=== PATIENT | female | born 1990 | race Caucasian/White ===

== ENCOUNTER 2017-08-03 08:36 | Outpatient (CLI) ==
[2016-07-22 04:14] VITALS: BMI 25.7
== END 2017-08-03 08:37 | disposition home or self-care (01) ==
LOC: CAR 08:36
PROVIDERS: ATTEND Family Medicine
DX: R00.2 Palpitations (principal)

== ENCOUNTER 2018-10-07 22:00 | Emergency (ER) | payer OTHER ==
[2018-10-07 22:16] VITALS: BMI 28.1
[2018-10-07] MEDS ORDERED: CARDIZEM INJ IVP STA ×2 (22:39→22:56)
[2018-10-07] MEDS ORDERED: SODIUM CHLORIDE 1,000 ML IV STA (22:39)
--- NOTE | 2018-10-07 22:43 | ED.PDOC ---
General ED Provider: Dr. YNES ROQUE Chief Complaint: Palpitations Stated Complaint: Patient is a 27 year old female who comes to the ER with Palpations off and on for a while which got worse today just prior to arrival. She sometimes has feeling of dizziness and anxeity. Previosuly had a workup with no findings. Renee any illicite Drug use. Time Seen by Physician: 22:41 Mode of Arrival: Walk-In Information Source: Patient Exam Limitations: No limitations Primary Care Provider: CAMILA HIGGINS Seen Within Last 72 Hours for Same Complaint By: ED Nursing and Triage Documentation Reviewed and Agree: No Does patient meet sepsis criteria?: No System Inflammatory Response Syndrome: Not Applicable Sepsis Protocol: For patient's 13 years and over: Temp is 96.8 and below OR 101 and greater Pulse >90 BPM Resp >20/minute Acutely Altered Mental Status Are patient's symptoms suggestive of a new infection, such as: -Pneumonia -Skin, Soft Tissue -Endocarditis -UTI -Bone, Joint Infection -Implantable Device -Acute Abdominal Infection -Wound Infection -Meningitis -Blood Stream Catheter Infection -Unknown Cardiovascular Complaint Exam - Palpitations Complaint/Exam Onset/Duration: months worse in the last 4 days and tonight Symptoms Are: Still present Timing: Intermittent Initial Severity: Severe Current Severity: Moderate Character: Reports: Fast, Irregular, Pounding, Skipped beats Alleviating: Reports: None Associated Signs and Symptoms: Reports: Lightheadedness, Nausea Related History: Similar episode Cardiac Risk Factors: Reports: Family history. Denies: Hypertension, Smoking, Diabetes, Elevated lipids, CHF, Prior [place], CAD Pulmonary Embolism Risk Factors: Reports: None Atrial Fibrillation Risk Factors: Reports: None Thyroid Exam: Normal Differential Diagnoses: CAD, Paroxysmal SVT Quality Indicators for AMI: EKG in 10min. Quality Indicators for Cardiac Chest Pain: EKG in 10min. Quality Indicator For Non-Traumatic Chest Pain/Syncope: EKG Performed Review of Systems - Review Of Systems Constitutional: Reports: No symptoms Eyes: Reports: No symptoms Ears, Nose, Mouth, Throat: Reports: No symptoms Respiratory: Reports: No symptoms Cardiac: Reports: Irregular heart rate, Lightheadedness, Palpitations GI: Reports: No symptoms : Reports: No symptoms Musculoskeletal: Reports: No symptoms Skin: Reports: No symptoms Neurological: Reports: No symptoms Endocrine: Reports: No symptoms Hematologic/Lymphatic: Reports: No symptoms All Other Systems: Reviewed and Negative Past Medical History - Past Medical History Endocrine: Reports: None Cardiovascular: Reports: None Respiratory: Reports: None Hematological: Reports: Anemia Gastrointestinal: Reports: GERD Genitourinary: Reports: None Neuro/Psych: Reports: Anxiety, Depression Musculoskeletal: Reports: None Cancer: Reports: Skin (melanoma left breast) Last Menstrual Period: now - Surgical History General Surgical History: Reports: Other (melanoma left breast, tissue removed in 2011) - Family History Family History: Reports: None - Social History Smoking Status: Never smoker Hx Substance Use: No Alcohol Screening: None - Immunizations Tetanus Shot up to Date: No Physical Exam - Physical Exam Appearance: Ill-appearing Eyes: NIKKI, EOMI, Conjunctiva clear ENT: Ears normal, Nose normal, Oropharynx normal Respiratory: Airway patent, Breath sounds clear, Breath sounds equal, Respirations nonlabored Cardiovascular: Tachycardia GI/: Soft Skin: Warm, Dry, Normal color Neurological: Sensation intact, Motor intact, Reflexes intact, Cranial nerves intact, Alert, Oriented Psychiatric: Anxious Interpretation - Oceanographic Meteorologist Time of Oceanographic Meteorologist Interpretation: 22:43 Rate: Tachy Rhythm: Sinus Ectopy: None (fusion complexes ) - EKG Interpretation Time of EKG #1: 22:34 Rate: Tachy Rhythm: Sinus Ectopy: PVCs (Fusion complexes ) [place]: NL ST Segment: Normal Physician Notification - Case Discussed Physician Notified: Dr West Time of Notification: 23:46 (Accepted to go to [facility]) Critical Care Note - Critical Care Note Total Time (mins): 45 Course - Course Hematology/Chemistry: 10/07/18 22:30 10/07/18 22:30 Orders, Labs, Meds: Lab Review 10/07/18 10/07/18 10/07/18 22:30 22:30 22:30 WBC 7.27 RBC 4.37 Hgb 13.1 Hct 37.8 MCV 86.5 MCH 30.0 MCHC 34.7 RDW Coeff of Martínez 11.9 Plt Count 195 Immature Gran % (Auto) 0.1 Neut % (Auto) 54.3 Lymph % (Auto) 38.9 [place] % (Auto) 5.4 Eos % (Auto) 1.0 Baso % (Auto) 0.3 Immature Gran # (Auto) 0.0 Neut # (Auto) 4.0 Lymph # (Auto) 2.8 [place] # (Auto) 0.4 Eos # (Auto) 0.1 Baso # (Auto) 0.0 Sodium 145.8 H Potassium 3.69 Chloride 105.9 Carbon Dioxide 29.2 Anion Gap 14.39 BUN 11.8 Creatinine 0.76 Estimated GFR (MDRD) 91.00 BUN/Creatinine Ratio 15.52 Glucose 88.2 Calcium 9.20 Magnesium 1.76 Total Bilirubin 0.55 AST 19.0 ALT 14.8 Alkaline Phosphatase 46.4 Total Creatine Kinase 88.9 Troponin I < 0.012 Total Protein 7.50 Albumin 4.47 Globulin 3.03 Albumin/Globulin Ratio 1.47 TSH 3.200 Free T4 1.03 Orders Category Date Time Status EKG-(ED ONLY) Stat CARDIO 10/07/18 22:20 Completed EKG-(ED ONLY) Stat CARDIO 10/07/18 22:55 Completed EKG-(ED ONLY) Stat CARDIO 10/07/18 22:55 Completed EKG-(ED ONLY) Stat CARDIO 10/07/18 22:56 Completed EKG-(ED ONLY) Stat CARDIO 10/07/18 22:57 Completed EKG-(ED ONLY) Stat CARDIO 10/07/18 22:58 Completed ED IV/MEDIPORT/POWERPORT .ONCE EMERGENCY 10/07/18 22:39 Active CBC W/ AUTO DIFF Stat LAB 10/07/18 22:30 Completed COMPREHENSIVE METABOLIC PANEL Stat LAB 10/07/18 22:30 Completed CREATINE KINASE Stat LAB 10/07/18 22:30 Completed FREE T4 (FREE THYROXINE) Stat LAB 10/07/18 22:30 Completed FREE TRIIODOTHYRONINE (T3) Stat LAB 10/07/18 22:30 Received MAGNESIUM Stat LAB 10/07/18 22:30 Completed THYROID STIMULATING HORMONE Stat LAB 10/07/18 22:30 Completed TROPONIN I Stat LAB 10/07/18 22:30 Completed URINE DRUG SCREEN (RAPID FOR ED) [DRUG SCREEN, URINE, LAB 10/07/18 22:21 Uncollected RAPID] Stat 0.9 % Sodium Chloride [Saline Flush] MEDS 10/07/18 22:39 Ordered 1 syr IVF PRN PRN 0.9 % Sodium Chloride [Sodium Chloride] 100 ml MEDS 10/07/18 23:00 Ordered Diltiazem HCl Inj [Cardizem Inj] 125 mg IV 10 mg/hr Diltiazem HCl Inj [Cardizem Inj] MEDS 10/07/18 22:56 Discontinued 15 mg IVP ONCE STA Diltiazem HCl [Cardizem Inj] MEDS 10/07/18 23:04 Discontinued 100 mg .ROUTE .STK-MED ONE Diltiazem HCl [Cardizem Inj] MEDS 10/07/18 23:05 Discontinued 25 mg .ROUTE .STK-MED ONE Sodium Chloride 0.9% [Sodium Chloride] 1,000 ml MEDS 10/07/18 22:39 Discontinued IV BOLUS Medications Generic Name Dose Route Start Last Admin Trade Name Freq PRN Reason Stop Dose Admin Diltiazem HCl 125 mg/ Sodium 125 mls @ 10 mls/hr 10/07/18 23:00 10/07/18 23: 30 Chloride IV 5 mg/hr .[id number] TORIE 5 mls/hr Administration Protocol 10 MG/HR Sodium Chloride 1 syr 10/07/18 22:39 Saline Flush IVF PRN PRN To flush IV Discontinued Medications Generic Name Dose Route Start Last Admin Trade Name Freq PRN Reason Stop Dose Admin Diltiazem HCl 15 mg 10/07/18 22:56 10/07/18 23:12 Cardizem Inj IVP 10/07/18 22:57 15 mg ONCE STA Administration Sodium Chloride 1,000 mls @ 1,000 mls/hr 10/07/18 22:39 10/07/18 23:31 Sodium Chloride IV 10/07/18 23:38 1,000 mls/hr BOLUS STA Administration Vital Signs: Temp Pulse Resp BP Pulse Ox 10/07/18 23:30 107 H 17 120/77 10/07/18 22:01 100 F H 76 20 155/89 H 99 GRIFFIN Risk Score Age >/= 65: No >/= 3 CAD Risk Factors: No Known CAD (Stenosis >/= 50%): No ASA Use in Past 7 Days: No Severe Angina (>/= 2 episodes in 24 hours): No EKG ST Changes >/= 0.5mm: No Postive Cardiac Marker: No GRIFFIN Total Score: 0 GRIFFIN Risk Score: Risk Score Odds of by 30D 0 0.1 (0.1-0.2) 1 0.3 (0.2-0.3) 2 0.4 (0.3-0.5) 3 0.7 (0.6-0.9) 4 1.2 (1.0-1.5) 5 2.2 (1.9-2.6) 6 3.0 (2.5-3.6) 7 4.8 (3.8-6.1) Departure - Departure Time of Disposition: 23:47 Disposition: HOME SELF-CARE Discharge Problem: Palpitations Arrhythmia Qualifiers: Arrhythmia type: paroxysmal tachycardia, unspecified Qualified Code(s): I47.9 - Paroxysmal tachycardia, unspecified; I47 - Paroxysmal tachycardia Condition: Stable Pt referred to PMD for follow-up: Yes IPMP verified?: No Allergies/Adverse Reactions: Allergies Iodinated Contrast- Oral and IV Dye [Iodinated Contrast Media - IV Dye] Adverse Reaction (Verified 10/07/18 22:16) Home Medications: Ambulatory Orders Sertraline HCl [Zoloft] 50 mg PO DAILY 10/07/18 Pt. Stabilized Within Hospital's Capabilities/Transferred To: [facility] Disposition Discussed With: Patient, Family
[2018-10-07] MEDS ORDERED: CARDIZEM INJ 125 MG in SODIUM CHLORIDE 100 ML IV SCH ×4 (23:00)
[2018-10-07] MEDS ORDERED: CARDIZEM INJ ONE ×2 (23:04→23:05)
[2018-10-08] MEDS ORDERED: ATIVAN PO STA (00:55)
[2018-10-08 01:05] VITALS: BP 112/74; TEMP 99.6
== END 2018-10-08 01:15 | disposition short-term general hospital (02) ==
LOC: ED 22:00
DX: I47.9 Paroxysmal tachycardia, unspecified (principal); R00.2 Palpitations
CPT/HCPCS: 36415; 80053; 80306; 82550; 83735; 84439; 84443; 84481; 84484; 85025; 93005; 93010; 96361; 96365; 96366; 96375; 99285

== ENCOUNTER 2018-10-08 01:18 | Outpatient (CLI) ==
[2018-10-07 22:16] VITALS: BMI 28.1
== END 2018-10-08 01:34 | disposition short-term general hospital (02) ==
LOC: AMBL 01:18
PROVIDERS: ATTEND Internal Medicine Geriatric Medicine
DX: R00.0 Tachycardia, unspecified (principal); R00.2 Palpitations

== ENCOUNTER 2019-01-05 04:46 | Emergency (ER) ==
[2019-01-05] MEDS ORDERED: MORPHINE 2 MG/ML SYRINGE IVP STA (04:50)
[2019-01-05] MEDS ORDERED: ZOFRAN 4 MG/2 ML IVP STA (04:50)
[2019-01-05 04:51] VITALS: BP 140/85; TEMP 98.2; BMI 29.9
[2019-01-05] MEDS ORDERED: DILAUDID 1 MG/ML SYRINGE IVP STA (04:58)
--- NOTE | 2019-01-05 05:03 | ED.PDOC ---
General Stated Complaint: 28 y old presentin in distress from severe renal stone pain.Apparently also happened in he past several times, Mode of Arrival: Walk-In Information Source: Patient Exam Limitations: No limitations Nursing and Triage Documentation Reviewed and Agree: Yes Does patient meet sepsis criteria?: No System Inflammatory Response Syndrome: Not Applicable <SANDEEP VO - Last Filed: 01/05/19 06:53> Time Seen by Physician: 07:10 <LONI TREADWELL - Last Filed: 01/05/19 07:33> ED Provider: Dr. LONI TREADWELL Chief Complaint: Kidney Stone Primary Care Provider: CAMILA HIGGINS Sepsis Protocol: For patient's 13 years and over: Temp is 96.8 and below OR 101 and greater Pulse >90 BPM Resp >20/minute Acutely Altered Mental Status Are patient's symptoms suggestive of a new infection, such as: -Pneumonia -Skin, Soft Tissue -Endocarditis -UTI -Bone, Joint Infection -Implantable Device -Acute Abdominal Infection -Wound Infection -Meningitis -Blood Stream Catheter Infection -Unknown Complaint Exam - Complaint/Exam Patient Complains of: Reports: Pain Onset/Duration: back pain in CVA areas radiating to groin Symptoms Are: Still present Timing: Constant Initial Severity: Moderate Current Severity: Severe Location of Pain: Reports: Unable to describe, Diffuse, Right, Left, Flank, Groin Character: Reports: Sharp, Colicky, Burning, Tearing Aggravating: Reports: Movement, Coughing, Urination Alleviating: Reports: Position, Medications Associated Signs and Symptoms: Reports: Diaphoresis, Back pain, Hematuria, Dysuria, Nausea, Decreased urine output, Decreased activity, Abdominal Pain Related History: Reports: Similar episode Ectopic Risk Factors: Reports: None Ovarian Torsion Risk Factors: Reports: None Surgical Obstruction Risk Factors: Reports: None Related Surgical History: Denies: None Abdominal Findings: Present: CVA Tenderness Differential Diagnoses: Appendicitis, Ovarian Cyst, Ovarian Torsion, Ectopic , Renal Colic, Ureteral Stone, Tubo-ovarian Abscess, UTI <SANDEEP VO - Last Filed: 01/05/19 06:53> Review of Systems - Review Of Systems Constitutional: Reports: No symptoms Eyes: Reports: No symptoms Ears, Nose, Mouth, Throat: Reports: No symptoms Respiratory: Reports: No symptoms Cardiac: Reports: No symptoms GI: Reports: No symptoms : Reports: Burning, Dysuria, Frequency, Flank pain, Hematuria, Pain Musculoskeletal: Reports: No symptoms, Back pain Skin: Reports: No symptoms Neurological: Reports: No symptoms Endocrine: Reports: No symptoms, Excessive sweating Hematologic/Lymphatic: Reports: No symptoms All Other Systems: Reviewed and Negative <SANDEEP VO - Last Filed: 01/05/19 06:53> Past Medical History - Past Medical History Endocrine: Reports: None Cardiovascular: Reports: None Respiratory: Reports: None Hematological: Reports: Anemia Gastrointestinal: Reports: GERD Genitourinary: Reports: None Neuro/Psych: Reports: Anxiety, Depression Musculoskeletal: Reports: None Cancer: Reports: Skin (melanoma left breast) Last Menstrual Period: 1 week - Surgical History General Surgical History: Reports: Other (melanoma left breast, tissue removed in 2011) - Family History Family History: Reports: None - Social History Smoking Status: Never smoker Hx Substance Use: No Alcohol Screening: None - Immunizations Tetanus Shot up to Date: Yes <SANDEEP VO - Last Filed: 01/05/19 06:53> Physical Exam - Physical Exam Appearance: Ill-appearing, Well-nourished Ill-appearing: Moderate Pain Distress: Moderate Eyes: NIKKI ENT: Ears normal, Nose normal, Oropharynx normal Neck: Supple Respiratory: Airway patent, Breath sounds clear, Breath sounds equal Cardiovascular: RRR, Pulses normal, Bradycardia GI/: Tender, Bowel sounds hypoactive Musculoskeletal: Normal strength, ROM intact, No edema, No calf tenderness Skin: Warm, Dry Neurological: Sensation intact, Motor intact, Reflexes intact, Alert, Oriented Psychiatric: Affect appropriate <SANDEEP VO - Last Filed: 01/05/19 06:53> Physician Notification - Case Discussed Physician Notified: Dr.Kupferer ALVA Time of Notification: 06:54 (CT Abd/pelvis pending) <SANDEEP VO - Last Filed: 01/05/19 06:53> Critical Care Note - Critical Care Note Total Time (mins): 0 <LONI TREADWELL - Last Filed: 01/05/19 07:33> Course - Course Hematology/Chemistry: 01/05/19 05:40 01/05/19 05:40 <SANDEEP VO - Last Filed: 01/05/19 06:53> - Course Hematology/Chemistry: 01/05/19 05:40 01/05/19 05:40 <LONI TREADWELL - Last Filed: 01/05/19 07:33> - Course Orders, Labs, Meds: Lab Review 01/05/19 01/05/19 01/05/19 05:40 05:40 05:40 WBC 6.63 RBC 4.26 Hgb 12.9 Hct 37.2 MCV 87.3 MCH 30.3 MCHC 34.7 RDW Coeff of Martínez 12.4 Plt Count 175 Immature Gran % (Auto) 0.3 Neut % (Auto) 70.6 Lymph % (Auto) 22.8 [place] % (Auto) 5.4 Eos % (Auto) 0.6 Baso % (Auto) 0.3 Immature Gran # (Auto) 0.0 Neut # (Auto) 4.7 Lymph # (Auto) 1.5 [place] # (Auto) 0.4 Eos # (Auto) 0.0 Baso # (Auto) 0.0 D-Dimer (Manual) 205.08 Sodium 141.8 Potassium 3.78 Chloride 106.6 Carbon Dioxide 23.9 Anion Gap 15.08 BUN 14.7 Creatinine 0.78 Estimated GFR (MDRD) 88.00 BUN/Creatinine Ratio 18.84 Glucose 115.6 H Calcium 8.99 Total Bilirubin 0.72 AST 19.5 ALT 19.2 Alkaline Phosphatase 49.9 Troponin I Total Protein 7.51 Albumin 4.80 Globulin 2.71 Albumin/Globulin Ratio 1.77 Serum , Qual 01/05/19 01/05/19 05:40 05:40 WBC RBC Hgb Hct MCV MCH MCHC RDW Coeff of Martínez Plt Count Immature Gran % (Auto) Neut % (Auto) Lymph % (Auto) [place] % (Auto) Eos % (Auto) Baso % (Auto) Immature Gran # (Auto) Neut # (Auto) Lymph # (Auto) [place] # (Auto) Eos # (Auto) Baso # (Auto) D-Dimer (Manual) Sodium Potassium Chloride Carbon Dioxide Anion Gap BUN Creatinine Estimated GFR (MDRD) BUN/Creatinine Ratio Glucose Calcium Total Bilirubin AST ALT Alkaline Phosphatase Troponin I < 0.012 Total Protein Albumin Globulin Albumin/Globulin Ratio Serum , Qual Negative Orders Category Date Time Status EKG-(ED ONLY) Stat CARDIO 05/04/19 05:11 Completed IV [ED IV/MEDIPORT/POWERPORT] .ONCE EMERGENCY 01/05/19 05:13 Active Monitor [ED COOLER OPERATOR APPLIED] .ONCE EMERGENCY 01/05/19 05:41 Active BLOOD CULTURE (ED ONLY) Stat LAB 01/05/19 06:35 Received CBC W/ AUTO DIFF Stat LAB 01/05/19 05:40 Completed COMPREHENSIVE METABOLIC PANEL Stat LAB 01/05/19 05:40 Completed D-DIMER Stat LAB 01/05/19 05:40 Completed SERUM TEST [SERUM ] Stat LAB 01/05/19 05:40 Completed TROPONIN I Stat LAB 01/05/19 05:40 Completed URINALYSIS C & S IF INDICATED Stat LAB 01/05/19 05:15 Uncollected URINALYSIS WITH MICROSCOPIC Stat LAB 01/05/19 05:21 Uncollected 0.9 % Sodium Chloride [Saline Flush] MEDS 01/05/19 05:13 Active 1 syr IVF PRN PRN Hydromorphone HCl [Dilaudid 1 mg/ml Syringe] MEDS 01/05/19 04:58 Discontinued 1 mg IVP ONCE STA Ketorolac Tromethamine [Toradol] MEDS 01/05/19 06:35 Discontinued 30 mg IVP ONCE STA Promethazine HCl [Phenergan 25 mg/ml Vial] MEDS 01/05/19 05:30 Discontinued 25 mg .ROUTE .STK-MED ONE Promethazine HCl [Phenergan 25 mg/ml Vial] 25 mg MEDS 01/05/19 05:27 Discontinued 0.9 % Sodium Chloride [Sodium Chloride] 50 ml IV ONCE Sodium Chloride 0.9% [Sodium Chloride] 1,000 ml MEDS 01/05/19 05:[address] ABD/PEL WO RENAL STONE PROT Stat RADS 01/05/19 05:21 Completed Medications Generic Name Dose Route Start Last Admin Trade Name Freq PRN Reason Stop Dose Admin Sodium Chloride 1 syr 01/05/19 05:13 Saline Flush IVF PRN PRN To flush IV Discontinued Medications Generic Name Dose Route Start Last Admin Trade Name Freq PRN Reason Stop Dose Admin Hydromorphone HCl 1 mg 01/05/19 04:58 01/05/19 05:02 Dilaudid 1 Mg/Ml Syringe IVP 01/05/19 04:59 1 mg ONCE STA Administration Sodium Chloride 1,000 mls @ 1,000 mls/hr 01/05/19 05:14 01/05/19 05:27 Sodium Chloride IV 01/05/19 06:13 1,000 mls/hr BOLUS STA Administration Promethazine HCl 25 mg/ Sodium 51 mls @ 75 mls/hr 01/05/19 05:27 01/05/19 05: 39 Chloride IV 01/05/19 06:07 75 mls/hr ONCE STA Administration Ketorolac Tromethamine 30 mg 01/05/19 06:35 01/05/19 06:48 Toradol IVP 01/05/19 06:36 30 mg ONCE STA Administration Vital Signs: Temp Pulse Resp BP Pulse Ox 01/05/19 04:47 98.2 F 63 20 140/85 100 Departure - Departure Pt referred to PMD for follow-up: Yes IPMP verified?: No Disposition Discussed With: Patient, Family <SANDEEP VO - Last Filed: 01/05/19 06:53> - Departure Time of Disposition: 07:20 <LONI TREADWELL - Last Filed: 01/05/19 07:33> - Departure Disposition: HOME SELF-CARE Discharge Problem: Renal calculi Instructions: Kidney Stones (ED) Condition: Good Additional Instructions: Renal Stones Instructions Strain all Urine Take Flomax 0.4 mg daily until stone passes Force Fluids Take Phenergan as needed for Nausea and vomiting plus Toradol as needed for pain Call [facility] office on Monday for re-evaluation /referral to Urology vs contacting Urologist for further evaluation if stone fails to pass/ Return to ER PRN if condition worsens or fails to resolve Prescriptions: Promethazine HCl 25 mg PO Q6HR PRN #15 tablet PRN Reason: Nausea / Vomiting Ketorolac Tromethamine [Toradol] 10 mg PO Q6H 10 Days tablet MDD 40mg Allergies/Adverse Reactions: Allergies Iodinated Contrast- Oral and IV Dye [Iodinated Contrast Media - IV Dye] Adverse Reaction (Verified 01/05/19 04:51) Hives Home Medications: Ambulatory Orders Sertraline HCl [Zoloft] 50 mg PO DAILY 10/07/18 Flecainide Acetate 50 mg PO BID 01/05/19 Ketorolac Tromethamine [Toradol] 10 mg PO Q6H 10 Days tablet MDD 40mg 01/05/19 Metoprolol Succinate [Toprol Xl] 25 mg PO BID 01/05/19 Promethazine HCl 25 mg PO Q6HR PRN #15 tablet 01/05/19
[2019-01-05] MEDS ORDERED: SODIUM CHLORIDE 1,000 ML IV STA (05:14)
[2019-01-05] MEDS ORDERED: PHENERGAN 25 MG/ML VIAL 25 MG in SODIUM CHLORIDE 50 ML IV STA (05:27)
[2019-01-05] MEDS ORDERED: PHENERGAN 25 MG/ML VIAL ONE (05:30)
[2019-01-05] MEDS ORDERED: TORADOL IVP STA (06:35)
--- NOTE | 2019-01-05 06:46 | CT ---
EXAM: CT abdomen pelvis without intravenous contrast 01/05/2019. Sagittal and coronal reformatted i mages obtained HISTORY: Abdominal pain. Pelvic pain COMPARISON: None. FINDINGS: The liver, gallbladder, adrenal glands, right kidney, spleen and pancreas show no acute ab normality. No bowel obstruction. Normal appendix. Unremarkable bladder. Intrauterine device is in place. 3 mm diameter stone is present within the proximal left ureter as seen on image 63. This causes mode rate left hydronephrosis. No acute osseous abnormality. IMPRESSION: 3 mm diameter stone within the proximal left ureter causes moderate left-sided hydroneph rosis.
== END 2019-01-05 07:56 | disposition home or self-care (01) ==
LOC: ED 04:46
DX: N20.0 Calculus of kidney (principal)
CPT/HCPCS: 36415; 74176; 80053; 84484; 84703; 85025; 85379; 87040; 93005; 93010; 96361; 96365; 96375; 99283